=== PATIENT | male | born 1995 | race Caucasian/White ===

== ENCOUNTER 2021-10-18 09:14 | Emergency (ER) | payer MEDICAID ==
[~2021-10-18] VITALS: Ht 175.3 cm; Wt 86.0 kg
[2021-10-18 10:17] VITALS: BP 116/75
[2021-10-18] MEDS ORDERED: BENZ-8 PO (10:25)
--- NOTE | 2021-10-18 10:25 | PHYS DOC ---
Past History Past Medical History: No Pertinent History, Pancreatitis (ANDRE GALLEGO) Past Surgical History: No Surgical History (ANDRE GALLEGO) Alcohol Use: None Drug Use: None (ANDRE GALLEGO) General Adult EDM: Chief Complaint: COUGH HPI: HPI: Patient is a 26 year old male who presents with 5-day history of body aches, chills, nasal congestion, sore throat and cough. Patient reports his cough is worse at night when he tries to sleep. His symptoms began on Thursday and he has been trying to be seen in urgent care since then, but has been unable because they are "busy." Patient denies objective fever, shortness of breath. (ANDRE GALLEGO) Review of Systems: Review of Systems: Constitutional: See HPI Eyes: Denies change in visual acuity or visual field deficits HENT: See HPI Respiratory: See HPI Cardiovascular: Denies chest pain or edema GI: Denies abdominal pain, nausea, vomiting, bloody stools or diarrhea Musculoskeletal: Denies back pain or joint pain Integument: Denies rash or other skin lesions (ANDRE GALLEGO) Allergies: Allergies: Allergies Coded Allergies Type Severity Reaction Last Updated Verified No Known Drug Allergies 10/18/21 No (ANDRE GALLEGO) Physical Exam: PE: Constitutional: Well developed, well nourished, no acute distress, non-toxic appearance. HENT: Normocephalic, atraumatic, bilateral external ears without deformity or discharge, bilateral tympanic membranes pearly salinas without erythema or fluid levels, oropharynx moist, no oral exudates, postnasal drip and pharyngeal erythema appreciated, nose without obvious deformity, bilateral nares with moderate mucus, bilateral turbinates erythematous. Eyes: EOMI, conjunctiva normal, no discharge. Neck: Normal range of motion, no tenderness, supple, no stridor. Cardiovascular: Heart rate regular rhythm, no murmur. Lungs & Thorax: Bilateral breath sounds clear to auscultation. (ANDRE GALLEGO) Current Patient Data: Labs: Laboratory Tests Test 10/18/21 10:23 Influenza Type A (Rapid) Negative (NEGATIVE) Influenza Type B (Rapid) Negative (NEGATIVE) Vital Signs: Vital Signs Date Time Temp Pulse Resp B/P (MAP) Pulse Ox O2 Delivery O2 Flow Rate FiO2 10/18/21 10:17 97.9 78 18 116/75 (89) 99 (ANDRE GALLEGO) Heart Score: C/O Chest Pain: No (ANDRE GALLEGO) Course & Med Decision Making: Course & Med Decision Making Pertinent Labs and Imaging studies reviewed. (See chart for details) Patient is an otherwise healthy 26-year-old male who is experienced 5-day history of multiple symptoms concerning for viral illness, including COVID-19. Influenza A&B as well as COVID-19 swabs obtained. Patient counseled on supportive treatment measures for viral illness. Patient will need to quarantine until his COVID-19 swab test results become available. Patient understands and is agreeable to discharge plan. (ANDRE GALLEGO) Dragon Disclaimer: Dragon Disclaimer: This electronic medical record was generated, in whole or in part, using a voice recognition dictation system. (ANDRE GALLEGO) Attending Co-Sign The patient was seen and interviewed as well as examined at the bedside. The chart was reviewed. The case was discussed. Agree with the plan of care. (KOKO VAUGHN DO) Departure Departure: Impression: Primary Impression: Viral upper respiratory illness Disposition: HOME / SELF CARE / HOMELESS Condition: STABLE Referrals: PCP,AMANDEEP (PCP) Patient Instructions: Upper Respiratory Infection, Adult, [id number] Additional Instructions: Start using the following supportive treatments: - Cool mist humidifier with plain water by the bed at night - Mucinex (guaifenesin) per box label instructions - Tessalon perles (benzonatate) at night for cough - Alternate Advil (ibuprofen) and Tylenol (acetaminophen) every 4 hours for body aches/fever You have been tested for COVID-19. It is an infection caused by a new type of coronavirus. COVID-19 will cause cold-like or mild flu symptoms in most. It can cause more severe symptoms like problems breathing in some. There is no treatment for COVID-19. The body will clear the infection over time. Self-care will help to ease discomfort. Steps to Take: - Rest as needed. - Choose healthy foods including fruits and vegetables. Drink water throughout the day. - Get plenty of sleep each night. - If you smoke, try to quit. It may ease breathing. - Avoid alcohol. - Keep Others Healthy - The virus can spread to others. Droplets are released every time you sneeze or cough. The droplets can get into the mouth, nose, or eyes of people near you and lead to infection. To lower the chances of spreading COVID-19 to others: Stay at home until your doctor has said it is safe to leave. If you tested positive this will mean staying isolated until both of the following are true: - At least 7 days have passed since the start of illness. - You are free of fever for at least 72 hours without the use of medicine. During this time: - Avoid public areas, events, or transportation. Do not return to work or school until your doctor has said it is safe to do so. - Call ahead if you need to go to a medical center. Let them know you may have COVID-19. It will help them guide you where to go. They may also ask you to wear a facemask when you come to the office. - If you call for emergency medical services, let them know you may have COVID- 19. While at home: - Try to avoid close contact with others. Stay about 6 feet away. - If possible, spend most of your time in a separate room from others. - Use a face mask if you will be in close contact with others such as sharing a room or vehicle. - Have someone wipe down common surfaces in the home. Use household furnace clerk every day on areas like doorknobs, counters, or sinks. - Cough or sneeze into a tissue. Throw the tissue away right after use. If a tissue is not available, cough or sneeze into your elbow. - Wash your hands often. Wash them after sneezing or coughing. Use soap and water and wash or at least 20 seconds. Alcohol based hand face cleaner can be used if soap and water is not available. - Do not prepare food for others. Avoid sharing personal items like forks, spoons, or toothbrushes. - Avoid close contact with pets while you are sick. There is no evidence of the virus passing to pets. This is a safety step until more is known about this virus. - Isolation can be frustrating. Social interaction can help. Keep in touch with friends and family through phone and tech options. You can still interact with others in your home, just keep a safe distance of about 6 feet. Follow-up: - Your doctors office will check in with you to see if there are any changes in your health. - You may be asked to keep track of symptoms to share with them. They will also let you know when you are clear to be in public again. Contact your doctor if your recovery is not going as you expect. Get emergency care if you have problems such as: - Trouble breathing with oxygen saturation <90% - Nonstop chest pain or pressure - Changes in awareness, confusion, or problems waking - Lips or face have bluish color - Worsening of symptoms If you think you have an emergency, call for emergency medical services right away. As taken from [facility] Benzonatate (BENZONATATE) 100 Mg Capsule 1-2 CAP PO HS for cough, #20 CAP Prov: ANDRE GALLEGO 10/18/21 ANDRE GALLEGO Oct 18, 2021 10:25 KOKO VAUGHN DO Oct 19, 2021 22:17
[2021-10-18 11:07] LABS: INFLUENZA A PATIENT NEGATIVE (NEGATIVE); INFLUENZA B PATIENT NEGATIVE (NEGATIVE)
--- NOTE | 2021-10-20 15:47 | NUR ---
COVID POS RESULTS GIVEN BY KP.
== END 2021-10-18 10:49 | disposition home or self-care (01) ==
LOC: ER 09:14
DX: U07.1 COVID-19 (principal); J06.9 Acute upper respiratory infection, unspecified
CPT/HCPCS: 87804; 99283; C9803; U0003